=== PATIENT | female | born 1990 | race Caucasian/White ===

== ENCOUNTER 2017-07-05 00:11 | Inpatient (IN) | payer BC ==
[2017-07-05] MEDS ORDERED: Sodium Chloride 0.9% 10 ML Syringe FLUSH PRN (10:06)
[2017-07-05] MEDS ORDERED: Nalbuphine 20 MG/1 ML Amp IVPUSH PRN (10:06)
[2017-07-05] MEDS ORDERED: Oxytocin/Lactated Ringers 10 UNIT/1,000 ML BAG IV SCH ×2 (10:15)
--- NOTE | 2017-07-05 10:16 | PCM.LDHP ---
L&D History of Present Illness - General Date of Service: 07/05/17 Admit Problem/Dx: Patient Status Order with Admit Dx/Problem 07/05/17 10:07 Patient Status [ADT] Routine Admission Diagnosis/Problem Admission Diagnosis/Problem 07/05/17 10:11 Induction of labor Term Source of Information: Patient History Limitations: Reports: No Limitations - History of Present Illness Introduction:: 27 jossy LockeP0 at 41 weeks gestation presents for induction of labor. No LOF, No VB. Good FM Routine and uncomplicated care. Pt has rheumatoid arthritis with no flares during . She is planning to breastfeed. GBS neg AB Neg STD neg - Related Data Allergies/Adverse Reactions: Allergies Allergy/AdvReac Type Severity Reaction Status Date / Time cefaclor [From [facility]] Allergy Hives Verified 07/05/17 09:44 Past Medical History Musculoskeletal History: Reports: RA Social & Family History - Family History Cardiac: Reports: Heart Failure, Hypertension Endocrine/Metabolic: Reports: Diabetes, type II - Tobacco Use Smoking Status *Q: Never Smoker - Alcohol Use Alcohol Use History: No - Living Situation & Occupation Living situation: Reports: H&P Review of Systems - Review of Systems: Review Of Systems: See Below General: Reports: No Symptoms HEENT: Reports: No Symptoms Pulmonary: Reports: No Symptoms Cardiovascular: Reports: No Symptoms Gastrointestinal: Reports: No Symptoms Genitourinary: Reports: No Symptoms Musculoskeletal: Reports: No Symptoms Skin: Reports: No Symptoms Psychiatric: Reports: No Symptoms Neurological: Reports: No Symptoms Hematologic/Lymphatic: Reports: No Symptoms Immunologic: Reports: No Symptoms L&D Exam - Exam Exam: See Below - Vital Signs Vital Signs: Last Vital Signs Temp 37.0 C 07/05/17 09:43 Pulse 74 07/05/17 09:43 Resp BP 137/90 07/05/17 09:43 Pulse Ox 100 07/05/17 09:43 Weight: 82.1 kg - OB Specific Movement: Active Heart Tones: Present Heart Tones per Min: 130 Heart Rate (FHR) Variability: Moderate (6-25 bmp) Presentation: Vertex Estimated Weight: 3500 - Reynolds Score Reynolds Score Cervix Position: Midposition Reynolds Score Consistency: Soft Reynolds Score Effacement: >80% Reynolds Score Dilation: 3-4 cm Reynolds Score 's Station: -2 Reynolds Score Total: 9 - Exam General: Alert, Oriented Genitourinary: Normal external exam Extremities: Normal Inspection, No Pedal Edema Skin: Warm, Dry Psychiatric: Alert, Normal Affect, Normal Mood - Problem List (1) Term SNOMED Code(s): 45200286 ICD Code: Z34.80 - ENCOUNTER FOR SUPRVSN OF NORMAL , UNSP TRIMESTER Status: Acute Current Visit: Yes Problem List Initiated/Reviewed/Updated: Yes Orders Last 24hrs: Active Orders 24 hr Category Date Time Status Patient Status [ADT] Routine ADT 07/05/17 10:07 Ordered Activity as Tolerated [RC] PFP Care 07/05/17 10:06 Ordered Communication Order [RC] ASDIRECTED Care 07/05/17 10:06 Ordered Communication Order [RC] ASDIRECTED Care 07/05/17 10:06 Ordered Communication Order [RC] ASDIRECTED Care 07/05/17 10:06 Ordered Communication Order [RC] ASDIRECTED Care 07/05/17 10:06 Ordered Heart Tones [RC] ASDIRECTED Care 07/05/17 10:07 Ordered Monitoring [RC] INTERMITTENT Care 07/05/17 10:06 Ordered Notify Provider [RC] ASDIRECTED Care 07/05/17 10:06 Ordered Notify Provider [RC] PFP Care 07/05/17 10:06 Ordered Notify Provider [RC] PRN Care 07/05/17 10:06 Ordered Peripheral IV Care [RC] . DIRECTED Care 07/05/17 10:07 Ordered Vaginal Exam [RC] ASDIRECTED Care 07/05/17 10:06 Ordered Vital Signs [RC] ASDIRECTED Care 07/05/17 10:06 Ordered Vital Signs [RC] PER UNIT ROUTINE Care 07/05/17 10:06 Ordered Nothing Per Oral Diet [DIET] Diet 07/05/17 Breakfast Ordered CBC W/O DIFF,HEMOGRAM [HEME] Stat Lab 07/05/17 10:06 Ordered FLU Vacc [id number](6MOS UP)/PF [Flulaval Quad [id number] Med 07/05/17 18:00 Once ] 60 mcg IM .ONCE ONE Lactated Ringers [Ringers, Lactated] 1,000 ml Med 07/05/17 10:15 Ordered IV ASDIRECTED Lactated Ringers [Ringers, Lactated] 1,000 ml Med 07/05/17 10:15 Ordered IV ASDIRECTED Lidocaine 1% [Xylocaine 1%] Med 07/05/17 10:06 Once 50 ml INJECT ONETIME ONE Nalbuphine [Nubain] Med 07/05/17 10:06 Ordered 10 mg IVPUSH Q2H PRN Oxytocin/Lactated Ringers [Pitocin in LR 10 Units/1,000 Med 07/05/17 10:15 Ordered ML] 10 unit in 1,000 ml IV .CONTINUOUS Oxytocin/Lactated Ringers [Pitocin in LR 10 Units/1,000 Med 07/05/17 10:15 Ordered ML] 10 unit in 1,000 ml IV TITRATE Sodium Chloride 0.9% [Saline Flush] Med 07/05/17 10:06 Ordered 10 ml FLUSH ASDIRECTED PRN Electronic Heart Tones Ext w TOCO [WOMSER] Oth 07/05/17 10:06 Ordered Routine Electronic Heart Tones Internal [WOMSER] Per Unit Oth 07/05/17 10:06 Ordered Routine Peripheral IV Insertion Adult [OM.PC] Routine Oth 07/05/17 10:06 Ordered Peripheral IV Insertion Adult [OM.PC] Routine Oth 07/05/17 10:06 Ordered Resuscitation Status Routine Resus Stat 07/05/17 10:06 Ordered Medication Orders Influenza Virus Vaccine (Flulaval Quad [id number]) 60 mcg IM .ONCE ONE Stop: 07/05/17 18:01 Assessment/Plan Comment:: 27 yo at 41 weeks gestation presents for induction of labor. Pt is 3 cm dilated on initial exam. Pitocin started. anticipate vaginal delivery.
[2017-07-05] MEDS: Lactated Ringers 1,000 ML IV SCH ×3 (10:28→20:17)
[2017-07-05] MEDS ORDERED: Bupivacaine 0.25% 10 ML SDV ONE (12:00)
[2017-07-05] MEDS ORDERED: ePHEDrine 50 MG/ML SDV IVPUSH PRN (12:14)
[2017-07-05] MEDS ORDERED: diphenhydrAMINE 50 MG/ML SDV IVPUSH PRN (12:14)
[2017-07-05] MEDS ORDERED: fentaNYL 100 MCG/2 ML SDV EPIDUR PRN (12:14)
[2017-07-05] MEDS ORDERED: Bupivacaine/fentaNYL/NS 100 ML Bag EPIDUR SCH (12:15)
--- NOTE | 2017-07-05 12:30 | PCM.PREANE ---
Preanesthetic Assessment - Anesthesia/Transfusion/Family Hx Anesthesia History: No Prior Anesthesia Family History of Anesthesia Reaction: No Transfusion History: No Prior Transfusion(s) - Review of Systems General: No Symptoms Pulmonary: No Symptoms Cardiovascular: No Symptoms Gastrointestinal: No Symptoms Neurological: No Symptoms Other: Reports: None - Physical Assessment O2 Sat by Pulse Oximetry: 100 Vital Signs: Last Vital Signs Temp 98.6 F 07/05/17 09:43 Pulse 74 07/05/17 09:43 Resp BP 137/90 07/05/17 09:43 Pulse Ox 100 07/05/17 09:43 Height: 5 ft 10 in Weight: 82.1 kg ASA Class: 2 Mental Status: Alert & Oriented x3 Airway Class: Mallampati = 1 Dentition: Reports: Normal Dentition Thyro-Mental Finger Breadths: 3 Mouth Opening Finger Breadths: 3 ROM/Head Extension: Full Lungs: Clear to Auscultation, Normal Respiratory Effort Cardiovascular: Regular Rate, Regular Rhythm - Lab Values: Laboratory Last Values WBC 14.83 K/mm3 (3.98-10.04) H 07/05/17 10:35 RBC 4.61 M/mm3 (3.98-5.22) 07/05/17 10:35 Hgb 14.1 gm/L (11.2-15.7) 07/05/17 10:35 Hct 42.3 % (34.1-44.9) 07/05/17 10:35 MCV 91.8 fl (79.4-94.8) 07/05/17 10:35 MCH 30.6 pg (25.6-32.2) 07/05/17 10:35 MCHC 33.3 g/dl (32.2-35.5) 07/05/17 10:35 RDW Std Deviation 46.1 fL (36.4-46.3) 07/05/17 10:35 Plt Count 251 K/mm3 (182-369) 07/05/17 10:35 MPV 11.6 fl (9.4-12.3) 07/05/17 10:35 - Allergies Allergies/Adverse Reactions: Allergies Allergy/AdvReac Type Severity Reaction Status Date / Time cefaclor [From [facility]] Allergy Hives Verified 07/05/17 09:44 - Blood Blood Available: No - Acknowledgements Anesthesia Type Planned: Epidural Pt an Appropriate Candidate for the Planned Anesthesia: Yes Alternatives and Risks of Anesthesia Discussed w Pt/Guardian: Yes Pt/Guardian Understands and Agrees with Anesthesia Plan: Yes PreAnesthesia Questionnaire Cardiovascular History: Reports: None Respiratory History: Reports: None Gastrointestinal History: Reports: GERD (with preg- tums) [employer] History: Reports: : 1 (41 weeks) Para: 0 Musculoskeletal History: Reports: RA Oncologic (Cancer) History: Reports: None - History Comment History Comment: vits and tums and iron for home meds - SUBSTANCE USE Smoking Status *Q: Never Smoker Tobacco Use Within Last Twelve Months: No Second Hand Smoke Exposure: No Days Per Week of Alcohol Use: 0 Recreational Drug Use History: No - CURRENT (IN HOUSE) MEDS Current Meds: Current Medications Diphenhydramine HCl (Benadryl) 25 mg IVPUSH Q6H PRN PRN Reason: pruritis Ephedrine Sulfate (Ephedrine Sulfate) 5 mg IVPUSH ASDIRECTED PRN PRN Reason: Hypotension Fentanyl (Sublimaze) 100 mcg EPIDUR Q3H PRN PRN Reason: Pain Fentanyl/Bupivacaine HCl (Fentanyl/Bupivacaine/Ns 2 Mcg-0.125% 100 Ml) 100 ml EPIDUR ASDIRECTED GINA Lactated Ringer's (Ringers, Lactated) 1,000 mls @ 40 mls/hr IV ASDIRECTED GINA Last Admin: 07/05/17 10:28 Dose: 40 mls/hr Lactated Ringer's (Ringers, Lactated) 1,000 mls @ 100 mls/hr IV ASDIRECTED GINA Oxytocin/Lactated Ringer's (Pitocin In Lr 10 Units/1,000 Ml) 10 unit in 1,000 mls @ 12 mls/hr IV TITRATE GINA; 2 MUNITS/MIN PRN Reason: Protocol Last Titration: 07/05/17 11:38 Dose: 8 munits/min, 48 mls/hr Oxytocin/Lactated Ringer's (Pitocin In Lr 10 Units/1,000 Ml) 10 unit in 1,000 mls @ 500 mls/hr IV .CONTINUOUS GINA Influenza Virus Vaccine (Flulaval Quad [id number]) 60 mcg IM .ONCE ONE Stop: 07/05/17 18:01 Lidocaine HCl (Xylocaine 1%) 50 ml INJECT ONETIME ONE Stop: 07/05/17 16:01 Nalbuphine HCl (Nubain) 10 mg IVPUSH Q2H PRN PRN Reason: Pain (moderate 4-6) Sodium Chloride (Saline Flush) 10 ml FLUSH ASDIRECTED PRN PRN Reason: Keep Vein Open Discontinued Medications Influenza Virus Vaccine (Pharmacy To Dose - Influenza Vaccine) 1 each IM ONETIME ONE Stop: 07/05/17 09:51
[2017-07-05] MEDS ORDERED: Lidocaine 1% 50 ML MDV INJECT ONE (16:00)
[2017-07-05] MEDS ORDERED: FLU Vacc QS 2017-18 (6mos UP)/PF 60 MCG/0.5 ML Syringe IM ONE (18:00)
[2017-07-06] MEDS: Methylergonovine 0.2 MG/1 ML Amp ONE ×2 (00:32→10:30)
[2017-07-06] MEDS ORDERED: Docusate Sodium 100 MG Cap PO PRN (00:46)
[2017-07-06] MEDS ORDERED: Carboprost Tromethamine 250 MCG/1 ML Amp IM PRN (00:46)
[2017-07-06] MEDS ORDERED: Lanolin 100% Cream 7 GM Tube TOP PRN (00:46)
[2017-07-06] MEDS ORDERED: Witch Hazel Medicated Pads 100/Jar TOP PRN (00:46)
[2017-07-06] MEDS ORDERED: Acetaminophen 325 MG Tab PO PRN (00:46)
[2017-07-06] MEDS ORDERED: Benzocaine/Menthol 20%-0.5% Spray 56 GM Canister TOP PRN (00:46)
--- NOTE | 2017-07-06 00:53 | PCM.DEL ---
L & D Note - General Info Date of Service: 07/06/17 Mother's Due Date: 06/28/17 - Delivery Note Labor: Augmented by Oxytocin Delivery Outcome: Livebirth Infant Delivery Method: Spontaneous Vaginal Delivery-Single Presentation: Right Occiput Anterior (ADRIAN) Nuchal Cord: Present Prep: Povidone-Iodine (Betadine Anesthesia Type: Epidural Amniotic Fluid Description: Clear Laceration: 2nd Degree Suture type: Vicryl Suture size: 3-0 Placenta: Intact, Spontaneous Cord: 3 Vessels Estimated Blood Loss: 500 Resuscitation Needed: No [place]: Suctioned Post Delivery Events: Hemorrhage Delivery Comments (Free Text/Narrative):: mild hemorrhage controlled with uterine massage, clot evacuation and methergine IM x 1 dose. - Patient Data Vitals - Most Recent: Last Vital Signs Temp 37.0 C 07/05/17 09:43 Pulse 74 07/05/17 09:43 Resp BP 137/90 07/05/17 09:43 Pulse Ox 100 07/05/17 12:30 Weight - Most Recent: 82.1 kg Lab Results Last 24 Hours: Laboratory Results - last 24 hr 07/05/17 Range/Units 10:35 WBC 14.83 H (3.98-10.04) K/mm3 RBC 4.61 (3.98-5.22) M/mm3 Hgb 14.1 (11.2-15.7) gm/L Hct 42.3 (34.1-44.9) % MCV 91.8 (79.4-94.8) fl MCH 30.6 (25.6-32.2) pg MCHC 33.3 (32.2-35.5) g/dl RDW Std Deviation 46.1 (36.4-46.3) fL Plt Count 251 (182-369) K/mm3 MPV 11.6 (9.4-12.3) fl Med Orders - Current: Current Medications Acetaminophen (Tylenol) 650 mg PO Q4H PRN PRN Reason: mild pain or fever Benzocaine/Menthol (Dermoplast Pain Relief [place]) 0 gm TOP ASDIRECTED PRN PRN Reason: Perineal Comfort Measure Carboprost Tromethamine (Hemabate Ds) 250 mcg IM ASDIRECTED PRN PRN Reason: Excessive vaginal bleeding Diphenhydramine HCl (Benadryl) 25 mg IVPUSH Q6H PRN PRN Reason: pruritis Docusate Sodium (Colace) 100 mg PO BID PRN PRN Reason: Constipation Emollient Ointment (Lansinoh Hpa) 0 gm TOP ASDIRECTED PRN PRN Reason: Sore Nipples Ephedrine Sulfate (Ephedrine Sulfate) 5 mg IVPUSH ASDIRECTED PRN PRN Reason: Hypotension Fentanyl (Sublimaze) 100 mcg EPIDUR Q3H PRN PRN Reason: Pain Last Admin: 07/05/17 20:28 Dose: 100 mcg Fentanyl/Bupivacaine HCl (Fentanyl/Bupivacaine/Ns 2 Mcg-0.125% 100 Ml) 100 ml EPIDUR ASDIRECTED GINA Last Admin: 07/05/17 20:28 Dose: 100 ml Lactated Ringer's (Ringers, Lactated) 1,000 mls @ 40 mls/hr IV ASDIRECTED GINA Last Admin: 07/05/17 18:22 Dose: 40 mls/hr Lactated Ringer's (Ringers, Lactated) 1,000 mls @ 100 mls/hr IV ASDIRECTED GINA Last Admin: 07/05/17 20:17 Dose: 500 mls/hr Oxytocin/Lactated Ringer's (Pitocin In Lr 10 Units/1,000 Ml) 10 unit in 1,000 mls @ 12 mls/hr IV TITRATE GINA; 2 MUNITS/MIN PRN Reason: Protocol Last Titration: 07/05/17 18:19 Dose: 11 munits/min, 66 mls/hr Oxytocin/Lactated Ringer's (Pitocin In Lr 10 Units/1,000 Ml) 10 unit in 1,000 mls @ 500 mls/hr IV .CONTINUOUS GINA Ibuprofen (Motrin) 600 mg PO Q4H PRN PRN Reason: Mild pain or fever Nalbuphine HCl (Nubain) 10 mg IVPUSH Q2H PRN PRN Reason: Pain (moderate 4-6) Sodium Chloride (Saline Flush) 10 ml FLUSH ASDIRECTED PRN PRN Reason: Keep Vein Open Witch Norma (Tucks) 1 pad TOP ASDIRECTED PRN PRN Reason: Hemorrhoid pain Discontinued Medications Influenza Virus Vaccine (Pharmacy To Dose - Influenza Vaccine) 1 each IM ONETIME ONE Stop: 07/05/17 09:51 Influenza Virus Vaccine (Flulaval Quad [id number]) 60 mcg IM .ONCE ONE Stop: 07/05/17 18:01 Lidocaine HCl (Xylocaine 1%) 50 ml INJECT ONETIME ONE Stop: 07/05/17 16:01 Methylergonovine Maleate (Methergine) Confirm Administered Dose 0.2 mg .ROUTE .STK-MED ONE Stop: 07/06/17 00:30 - Problem List & Annotations (1) Term SNOMED Code(s): 00995088 Code(s): Z34.80 - ENCOUNTER FOR SUPRVSN OF NORMAL , UNSP TRIMESTER Status: Acute Current Visit: Yes - Problem List Review Problem List Initiated/Reviewed/Updated: Yes - My Orders Last 24 Hours: My Active Orders 07/05/17 10:06 Activity as Tolerated [RC] PFP Communication Order [RC] ASDIRECTED Communication Order [RC] ASDIRECTED Communication Order [RC] ASDIRECTED Communication Order [RC] ASDIRECTED Monitoring [RC] INTERMITTENT Notify Provider [RC] ASDIRECTED Notify Provider [RC] PFP Notify Provider [RC] PRN Vaginal Exam [RC] ASDIRECTED Vital Signs [RC] ASDIRECTED Nalbuphine [Nubain] 10 mg IVPUSH Q2H PRN Sodium Chloride 0.9% [Saline Flush] 10 ml FLUSH ASDIRECTED PRN Electronic Heart Tones Ext w TOCO [WOMSER] Routine Electronic Heart Tones Internal [WOMSER] Per Unit Routine Peripheral IV Insertion Adult [OM.PC] Routine Peripheral IV Insertion Adult [OM.PC] Routine Resuscitation Status Routine 07/05/17 10:07 Heart Tones [RC] ASDIRECTED Peripheral IV Care [RC] . DIRECTED 07/05/17 10:15 Lactated Ringers [Ringers, Lactated] 1,000 ml IV ASDIRECTED Lactated Ringers [Ringers, Lactated] 1,000 ml IV ASDIRECTED Oxytocin/Lactated Ringers [Pitocin in LR 10 Units/1,000 ML] 10 unit in 1,000 ml IV .CONTINUOUS Oxytocin/Lactated Ringers [Pitocin in LR 10 Units/1,000 ML] 10 unit in 1,000 ml IV TITRATE 07/05/17 Breakfast Nothing Per Oral Diet [DIET] 07/06/17 00:45 Patient Status Manage Transfer [TRANSFER] Routine 07/06/17 00:46 Acetaminophen [Tylenol] 650 mg PO Q4H PRN Benzocaine/Menthol [Dermoplast Pain Relief [place]] See Dose Instructions TOP ASDIRECTED PRN Carboprost Tromethamine [Hemabate DS] 250 mcg IM ASDIRECTED PRN Docusate Sodium [Colace] 100 mg PO BID PRN Ibuprofen [Motrin] 600 mg PO Q4H PRN Lanolin [Lansinoh HPA] See Dose Instructions TOP ASDIRECTED PRN Witevelin Norma [Tucks] 1 pad TOP ASDIRECTED PRN 07/06/17 00:47 Patient Status [ADT] Routine Activity as Tolerated [RC] PER UNIT ROUTINE Vital Signs [RC] ASDIRECTED Assess Lochia [WOMSER] Per Unit Routine Assess Uterine Involution [WOMSER] Per Unit Routine Breast Pump [WOMSER] Per Unit Routine Medication Administration Instruction [OM.PC] Routine Perineal Care [OM.PC] Per Unit Routine Sitz Bath [OM.PC] Per Unit Routine 07/06/17 01:00 Heat Therapy [OM.PC] PRN 07/06/17 Breakfast Regular Diet [DIET] 07/07/17 01:00 Heat Therapy [OM.PC] PRN 07/07/17 06:00 CBC W/O DIFF,HEMOGRAM [HEME] Routine - Plan Plan:: 27 yo at 41 weeks gestation presents for induction of labor. Pt is 3 cm dilated on initial exam. Pitocin started. anticipate vaginal delivery.
[2017-07-06] MEDS: Lactated Ringers 1,000 ML IV SCH (00:59)
--- NOTE | 2017-07-06 08:24 | PCM.PNPP ---
- General Info Date of Service: 07/06/17 Subjective Update: Pain controlled. no concerns. lochia normal. Functional Status: Reports: Pain Controlled, Tolerating Diet, Ambulating - Review of Systems General: Reports: No Symptoms HEENT: Reports: No Symptoms Pulmonary: Reports: No Symptoms Cardiovascular: Reports: No Symptoms Musculoskeletal: Reports: No Symptoms, Back Pain - General Info Date of Service: 07/06/17 - Patient Data Vital Signs - Most Recent: Last Vital Signs Temp 36.9 C 07/06/17 04:34 Pulse 78 07/06/17 04:34 Resp 20 07/06/17 04:34 BP 130/87 07/06/17 04:34 Pulse Ox 97 07/06/17 04:34 Weight - Most Recent: 82.1 kg I&O - Last 24 Hours: Intake & Output 07/05/17 07/06/17 07/06/17 22:59 06:59 14:59 Intake Total 3000 Balance 3000 Lab Results - Last 24 Hours: Laboratory Results - last 24 hr 07/05/17 Range/Units 10:35 WBC 14.83 H (3.98-10.04) K/mm3 RBC 4.61 (3.98-5.22) M/mm3 Hgb 14.1 (11.2-15.7) gm/L Hct 42.3 (34.1-44.9) % MCV 91.8 (79.4-94.8) fl MCH 30.6 (25.6-32.2) pg MCHC 33.3 (32.2-35.5) g/dl RDW Std Deviation 46.1 (36.4-46.3) fL Plt Count 251 (182-369) K/mm3 MPV 11.6 (9.4-12.3) fl Med Orders - Current: Current Medications Acetaminophen (Tylenol) 650 mg PO Q4H PRN PRN Reason: mild pain or fever Benzocaine/Menthol (Dermoplast Pain Relief [place]) 0 gm TOP ASDIRECTED PRN PRN Reason: Perineal Comfort Measure Carboprost Tromethamine (Hemabate Ds) 250 mcg IM ASDIRECTED PRN PRN Reason: Excessive vaginal bleeding Diphenhydramine HCl (Benadryl) 25 mg IVPUSH Q6H PRN PRN Reason: pruritis Docusate Sodium (Colace) 100 mg PO BID PRN PRN Reason: Constipation Emollient Ointment (Lansinoh Hpa) 0 gm TOP ASDIRECTED PRN PRN Reason: Sore Nipples Ephedrine Sulfate (Ephedrine Sulfate) 5 mg IVPUSH ASDIRECTED PRN PRN Reason: Hypotension Fentanyl (Sublimaze) 100 mcg EPIDUR Q3H PRN PRN Reason: Pain Last Admin: 07/05/17 20:28 Dose: 100 mcg Fentanyl/Bupivacaine HCl (Fentanyl/Bupivacaine/Ns 2 Mcg-0.125% 100 Ml) 100 ml EPIDUR ASDIRECTED GINA Last Admin: 07/05/17 20:28 Dose: 100 ml Lactated Ringer's (Ringers, Lactated) 1,000 mls @ 40 mls/hr IV ASDIRECTED GINA Last Admin: 07/05/17 18:22 Dose: 40 mls/hr Lactated Ringer's (Ringers, Lactated) 1,000 mls @ 100 mls/hr IV ASDIRECTED [facility] Last Admin: 07/06/17 00:59 Dose: 500 mls/hr Oxytocin/Lactated Ringer's (Pitocin In Lr 10 Units/1,000 Ml) 10 unit in 1,000 mls @ 12 mls/hr IV TITRATE GINA; 2 MUNITS/MIN PRN Reason: Protocol Last Titration: 07/05/17 18:19 Dose: 11 munits/min, 66 mls/hr Oxytocin/Lactated Ringer's (Pitocin In Lr 10 Units/1,000 Ml) 10 unit in 1,000 mls @ 500 mls/hr IV .CONTINUOUS GINA Ibuprofen (Motrin) 600 mg PO Q4H PRN PRN Reason: Mild pain or fever Nalbuphine HCl (Nubain) 10 mg IVPUSH Q2H PRN PRN Reason: Pain (moderate 4-6) Sodium Chloride (Saline Flush) 10 ml FLUSH ASDIRECTED PRN PRN Reason: Keep Vein Open Witch Norma (Tucks) 1 pad TOP ASDIRECTED PRN PRN Reason: Hemorrhoid pain Discontinued Medications Influenza Virus Vaccine (Pharmacy To Dose - Influenza Vaccine) 1 each IM ONETIME ONE Stop: 07/05/17 09:51 Influenza Virus Vaccine (Flulaval Quad [id number]) 60 mcg IM .ONCE ONE Stop: 07/05/17 18:01 Lidocaine HCl (Xylocaine 1%) 50 ml INJECT ONETIME ONE Stop: 07/05/17 16:01 Methylergonovine Maleate (Methergine) Confirm Administered Dose 0.2 mg .ROUTE .STK-MED ONE Stop: 07/06/17 00:30 Last Admin: 07/06/17 00:32 Dose: 0.2 mg - Interaction Infant Disposition, : in Room with Family Interaction: Holding Infant Infant Feeding: Attempted ; Nursed Fair/Poor Support Person: - Recovery Exam Fundal Tone: Firm Fundal Level: 1 Fingerbreadths Above Umbilicus Fundal Placement: Midline - Exam General: Alert, Oriented Extremities: Normal Inspection, No Pedal Edema - Problem List & Annotations (1) Term SNOMED Code(s): 09477214 Code(s): Z34.80 - ENCOUNTER FOR SUPRVSN OF NORMAL , UNSP TRIMESTER Status: Acute Current Visit: Yes - Problem List Review Problem List Initiated/Reviewed/Updated: Yes - My Orders Last 24 Hours: My Active Orders 07/05/17 10:06 Monitoring [RC] INTERMITTENT Vaginal Exam [RC] ASDIRECTED Vital Signs [RC] ASDIRECTED Nalbuphine [Nubain] 10 mg IVPUSH Q2H PRN Sodium Chloride 0.9% [Saline Flush] 10 ml FLUSH ASDIRECTED PRN Resuscitation Status Routine 07/05/17 10:07 Heart Tones [RC] ASDIRECTED Peripheral IV Care [RC] . DIRECTED 07/05/17 10:15 Lactated Ringers [Ringers, Lactated] 1,000 ml IV ASDIRECTED Lactated Ringers [Ringers, Lactated] 1,000 ml IV ASDIRECTED Oxytocin/Lactated Ringers [Pitocin in LR 10 Units/1,000 ML] 10 unit in 1,000 ml IV .CONTINUOUS Oxytocin/Lactated Ringers [Pitocin in LR 10 Units/1,000 ML] 10 unit in 1,000 ml IV TITRATE 07/06/17 00:46 Acetaminophen [Tylenol] 650 mg PO Q4H PRN Benzocaine/Menthol [Dermoplast Pain Relief [place]] See Dose Instructions TOP ASDIRECTED PRN Carboprost Tromethamine [Hemabate DS] 250 mcg IM ASDIRECTED PRN Docusate Sodium [Colace] 100 mg PO BID PRN Ibuprofen [Motrin] 600 mg PO Q4H PRN Lanolin [Lansinoh HPA] See Dose Instructions TOP ASDIRECTED PRN Witevelin Norma [Tucks] 1 pad TOP ASDIRECTED PRN 07/06/17 00:47 Patient Status [ADT] Routine Activity as Tolerated [RC] PER UNIT ROUTINE Vital Signs [RC] ASDIRECTED Assess Lochia [WOMSER] Per Unit Routine Assess Uterine Involution [WOMSER] Per Unit Routine Breast Pump [WOMSER] Per Unit Routine Medication Administration Instruction [OM.PC] Routine Perineal Care [OM.PC] Per Unit Routine Sitz Bath [OM.PC] Per Unit Routine 07/06/17 01:00 Heat Therapy [OM.PC] PRN 07/06/17 08:20 CBC W/O DIFF,HEMOGRAM [HEME] Routine 07/06/17 Breakfast Regular Diet [DIET] 07/07/17 01:00 Heat Therapy [OM.PC] PRN 07/07/17 06:00 CBC W/O DIFF,HEMOGRAM [HEME] Routine (Cancelled) - Plan Plan:: 27 yo at 41 weeks gestation presents for induction of labor. Pt is 3 cm dilated on initial exam. Pitocin started. anticipate vaginal delivery. 07/06/17 27 yo at PPD #1 s/p NVD hemorrhage Plan: CBC pending. fair No concerns.
[2017-07-06] MEDS: Ibuprofen 600 MG Tab PO PRN ×3 (09:00→21:00)
--- NOTE | 2017-07-06 13:53 | PCM48HPAN ---
Post Anesthesia Note - EVALUATION WITHIN 48HRS OF ANESTHETIC Vital Signs in Normal Range: Yes Patient Participated in Evaluation: Yes Respiratory Function Stable: Yes Airway Patent: Yes Cardiovascular Function Stable: Yes Hydration Status Stable: Yes Pain Control Satisfactory: Yes Nausea and Vomiting Control Satisfactory: Yes Mental Status Recovered: Yes
--- NOTE | 2017-07-07 07:36 | PCM.DCSUM1 ---
Discharge Summary - Hospital Course Free Text/Narrative:: 27 yo on PPD #1 s/p NVD with 2nd degreee laceration and hemorrhage. toleratin diet and activity. pain controlled. difficulty, not latching. Brief History: routine vaginal delivery. 2nd degree laceration. hemorrhage requiring methergine x1 dose. - Discharge Data Discharge Date: 07/07/17 Discharge Disposition: Home, Self-Care 01 Condition: Good - Discharge Diagnosis/Problem(s) (1) Term SNOMED Code(s): 10431931 ICD Code: Z34.80 - ENCOUNTER FOR SUPRVSN OF NORMAL , UNSP TRIMESTER Status: Resolved Current Visit: Yes (2) Vaginal delivery SNOMED Code(s): 825632627 ICD Code: O80 - ENCOUNTER FOR FULL-TERM UNCOMPLICATED DELIVERY Status: Resolved Current Visit: Yes (3) hemorrhage SNOMED Code(s): 68346594 ICD Code: O72.1 - OTHER IMMEDIATE HEMORRHAGE Status: Resolved Current Visit: Yes Qualifiers: hemorrhage type: third-stage Qualified Code(s): O72.0 - Third- stage hemorrhage - Patient Instructions Diet: Usual Diet as Tolerated Activity: As Tolerated Driving: May Drive Today Showering/Bathing: May Shower Wound/Incision Care: Keep Operative Site/Wound Site Clean and Dry Notify Provider of: Fever, Increased Pain, Swelling and Redness, Drainage, Nausea and/or Vomiting - Discharge Plan Home Medications: Home Meds Acetaminophen [Tylenol] 650 mg PO Q4H PRN tablet 07/07/17 [Rx] Docusate Sodium [Colace] 100 mg PO BID PRN cap 07/07/17 [Rx] Ibuprofen [IJD: Ibuprofen] 600 mg PO Q4H PRN tablet 07/07/17 [Rx] Lanolin [Lansinoh HPA] 1 applic TOP ASDIRECTED PRN tube 07/07/17 [Rx] Witch Norma [Tucks] 1 pad TOP ASDIRECTED PRN pad 07/07/17 [Rx] Patient Handouts: , Home Care Instructions for Mom, Challenges and Solutions Referrals: Dori Wei MD [Physician] - (6-8 weeks ) - Discharge Summary/Plan Comment DC Time >30 min.: No - General Info Date of Service: 07/07/17 Functional Status: Reports: Pain Controlled, Tolerating Diet, Ambulating - Patient Data Vitals - Most Recent: Last Vital Signs Temp 36.4 C 07/07/17 04:07 Pulse 89 07/07/17 04:07 Resp 13 07/07/17 04:07 BP 134/81 07/07/17 04:07 Pulse Ox 95 07/07/17 04:07 Weight - Most Recent: 82.1 kg I&O - Last 24 hours: Intake & Output 07/06/17 07/07/17 07/07/17 22:59 06:59 14:59 Intake Total 0 Balance 0 Lab Results - Last 24 hrs: Laboratory Results - last 24 hr 07/06/17 07/06/17 Range/Units 11:50 11:50 WBC 18.50 H (3.98-10.04) K/mm3 RBC 3.97 L (3.98-5.22) M/mm3 Hgb 12.1 (11.2-15.7) gm/L Hct 36.1 (34.1-44.9) % MCV 90.9 (79.4-94.8) fl MCH 30.5 (25.6-32.2) pg MCHC 33.5 (32.2-35.5) g/dl RDW Std Deviation 44.6 (36.4-46.3) fL Plt Count 224 (182-369) K/mm3 MPV 11.4 (9.4-12.3) fl Blood Type AB NEGATIVE Gel Antibody Screen Negative Screen 0 ros/5 flds - neg RhIG Candidate? Yes Rhogam Indicated Yes, baby rh pos H Med Orders - Current: Current Medications Acetaminophen (Tylenol) 650 mg PO Q4H PRN PRN Reason: mild pain or fever Benzocaine/Menthol (Dermoplast Pain Relief Firth) 0 gm TOP ASDIRECTED PRN PRN Reason: Perineal Comfort Measure Carboprost Tromethamine (Hemabate Ds) 250 mcg IM ASDIRECTED PRN PRN Reason: Excessive vaginal bleeding Diphenhydramine HCl (Benadryl) 25 mg IVPUSH Q6H PRN PRN Reason: pruritis Docusate Sodium (Colace) 100 mg PO BID PRN PRN Reason: Constipation Last Admin: 07/06/17 21:01 Dose: 100 mg Emollient Ointment (Lansinoh Hpa) 0 gm TOP ASDIRECTED PRN PRN Reason: Sore Nipples Ephedrine Sulfate (Ephedrine Sulfate) 5 mg IVPUSH ASDIRECTED PRN PRN Reason: Hypotension Fentanyl (Sublimaze) 100 mcg EPIDUR Q3H PRN PRN Reason: Pain Last Admin: 07/05/17 20:28 Dose: 100 mcg Fentanyl/Bupivacaine HCl (Fentanyl/Bupivacaine/Ns 2 Mcg-0.125% 100 Ml) 100 ml EPIDUR ASDIRECTED GINA Last Admin: 07/05/17 20:28 Dose: 100 ml Lactated Ringer's (Ringers, Lactated) 1,000 mls @ 40 mls/hr IV ASDIRECTED GINA Last Admin: 07/05/17 18:22 Dose: 40 mls/hr Lactated Ringer's (Ringers, Lactated) 1,000 mls @ 100 mls/hr IV ASDIRECTED GINA Last Admin: 07/06/17 00:59 Dose: 500 mls/hr Oxytocin/Lactated Ringer's (Pitocin In Lr 10 Units/1,000 Ml) 10 unit in 1,000 mls @ 12 mls/hr IV TITRATE GINA; 2 MUNITS/MIN PRN Reason: Protocol Last Titration: 07/05/17 18:19 Dose: 11 munits/min, 66 mls/hr Oxytocin/Lactated Ringer's (Pitocin In Lr 10 Units/1,000 Ml) 10 unit in 1,000 mls @ 500 mls/hr IV .CONTINUOUS GINA Ibuprofen (Motrin) 600 mg PO Q4H PRN PRN Reason: Mild pain or fever Last Admin: 07/06/17 21:00 Dose: 600 mg Nalbuphine HCl (Nubain) 10 mg IVPUSH Q2H PRN PRN Reason: Pain (moderate 4-6) Sodium Chloride (Saline Flush) 10 ml FLUSH ASDIRECTED PRN PRN Reason: Keep Vein Open Witch Norma (Tucks) 1 pad TOP ASDIRECTED PRN PRN Reason: Hemorrhoid pain Discontinued Medications Influenza Virus Vaccine (Pharmacy To Dose - Influenza Vaccine) 1 each IM ONETIME ONE Stop: 07/05/17 09:51 Last Admin: 07/06/17 10:31 Dose: Not Given Influenza Virus Vaccine (Flulaval Quad [id number]) 60 mcg IM .ONCE ONE Stop: 07/05/17 18:01 Lidocaine HCl (Xylocaine 1%) 50 ml INJECT ONETIME ONE Stop: 07/05/17 16:01 Last Admin: 07/06/17 10:29 Dose: Not Given Methylergonovine Maleate (Methergine) Confirm Administered Dose 0.2 mg .ROUTE .STK-MED ONE Stop: 07/06/17 00:30 Last Admin: 07/06/17 10:30 Dose: Not Given *Q Meaningful Use (DIS) - VTE *Q VTE Criteria *Q: - Stroke *Q Stroke Criteria *Q: - AMI *Q AMI Criteria *Q: - General Info Date of Service: 07/07/17 - Patient Data Vital Signs - Most Recent: Last Vital Signs Temp 36.4 C 07/07/17 04:07 Pulse 89 07/07/17 04:07 Resp 13 07/07/17 04:07 BP 134/81 07/07/17 04:07 Pulse Ox 95 07/07/17 04:07 Weight - Most Recent: 82.1 kg I&O - Last 24 Hours: Intake & Output 07/06/17 07/07/17 07/07/17 22:59 06:59 14:59 Intake Total 0 Balance 0 Lab Results - Last 24 Hours: Laboratory Results - last 24 hr 07/06/17 07/06/17 Range/Units 11:50 11:50 WBC 18.50 H (3.98-10.04) K/mm3 RBC 3.97 L (3.98-5.22) M/mm3 Hgb 12.1 (11.2-15.7) gm/L Hct 36.1 (34.1-44.9) % MCV 90.9 (79.4-94.8) fl MCH 30.5 (25.6-32.2) pg MCHC 33.5 (32.2-35.5) g/dl RDW Std Deviation 44.6 (36.4-46.3) fL Plt Count 224 (182-369) K/mm3 MPV 11.4 (9.4-12.3) fl Blood Type AB NEGATIVE Gel Antibody Screen Negative Screen 0 ros/5 flds - neg RhIG Candidate? Yes Rhogam Indicated Yes, baby rh pos H Med Orders - Current: Current Medications Acetaminophen (Tylenol) 650 mg PO Q4H PRN PRN Reason: mild pain or fever Benzocaine/Menthol (Dermoplast Pain Relief [place]) 0 gm TOP ASDIRECTED PRN PRN Reason: Perineal Comfort Measure Carboprost Tromethamine (Hemabate Ds) 250 mcg IM ASDIRECTED PRN PRN Reason: Excessive vaginal bleeding Diphenhydramine HCl (Benadryl) 25 mg IVPUSH Q6H PRN PRN Reason: pruritis Docusate Sodium (Colace) 100 mg PO BID PRN PRN Reason: Constipation Last Admin: 07/06/17 21:01 Dose: 100 mg Emollient Ointment (Lansinoh Hpa) 0 gm TOP ASDIRECTED PRN PRN Reason: Sore Nipples Ephedrine Sulfate (Ephedrine Sulfate) 5 mg IVPUSH ASDIRECTED PRN PRN Reason: Hypotension Fentanyl (Sublimaze) 100 mcg EPIDUR Q3H PRN PRN Reason: Pain Last Admin: 07/05/17 20:28 Dose: 100 mcg Fentanyl/Bupivacaine HCl (Fentanyl/Bupivacaine/Ns 2 Mcg-0.125% 100 Ml) 100 ml EPIDUR ASDIRECTED GINA Last Admin: 07/05/17 20:28 Dose: 100 ml Lactated Ringer's (Ringers, Lactated) 1,000 mls @ 40 mls/hr IV ASDIRECTED GINA Last Admin: 07/05/17 18:22 Dose: 40 mls/hr Lactated Ringer's (Ringers, Lactated) 1,000 mls @ 100 mls/hr IV ASDIRECTED GINA Last Admin: 07/06/17 00:59 Dose: 500 mls/hr Oxytocin/Lactated Ringer's (Pitocin In Lr 10 Units/1,000 Ml) 10 unit in 1,000 mls @ 12 mls/hr IV TITRATE GINA; 2 MUNITS/MIN PRN Reason: Protocol Last Titration: 07/05/17 18:19 Dose: 11 munits/min, 66 mls/hr Oxytocin/Lactated Ringer's (Pitocin In Lr 10 Units/1,000 Ml) 10 unit in 1,000 mls @ 500 mls/hr IV .CONTINUOUS GINA Ibuprofen (Motrin) 600 mg PO Q4H PRN PRN Reason: Mild pain or fever Last Admin: 07/06/17 21:00 Dose: 600 mg Nalbuphine HCl (Nubain) 10 mg IVPUSH Q2H PRN PRN Reason: Pain (moderate 4-6) Sodium Chloride (Saline Flush) 10 ml FLUSH ASDIRECTED PRN PRN Reason: Keep Vein Open Witch Norma (Tucks) 1 pad TOP ASDIRECTED PRN PRN Reason: Hemorrhoid pain Discontinued Medications Influenza Virus Vaccine (Pharmacy To Dose - Influenza Vaccine) 1 each IM ONETIME ONE Stop: 07/05/17 09:51 Last Admin: 07/06/17 10:31 Dose: Not Given Influenza Virus Vaccine (Flulaval Quad [id number]) 60 mcg IM .ONCE ONE Stop: 07/05/17 18:01 Lidocaine HCl (Xylocaine 1%) 50 ml INJECT ONETIME ONE Stop: 07/05/17 16:01 Last Admin: 07/06/17 10:29 Dose: Not Given Methylergonovine Maleate (Methergine) Confirm Administered Dose 0.2 mg .ROUTE .STK-MED ONE Stop: 07/06/17 00:30 Last Admin: 07/06/17 10:30 Dose: Not Given - Interaction Disposition, : [place] in Room with Family Infant Interaction: Holding Infant Feeding: Attempted ; Nursed Fair/Poor Support Person: - Recovery Exam Fundal Tone: Firm Fundal Level: 1 Fingerbreadths Below Umbilicus Fundal Placement: Midline Lochia Amount: Scant, Small Lochia Color: Brownish Perineum Description: Edematous Episiotomy/Laceration: Approximated Bladder Status: Voiding Urinary Elimination: Voided - Exam General: Alert, Oriented Extremities: No Pedal Edema Skin: Warm, Dry
[2017-07-07] MEDS: Ibuprofen 600 MG Tab PO PRN (11:06)
[2017-07-07 12:08] VITALS: BP 129/86
== END 2017-07-07 15:45 | disposition home or self-care (01) | DRG 560 ==
LOC: JD.OB 00:11 → OBSVTOIN 07-06 00:11 → JD.OB 07-06 01:24
PROVIDERS: ADMIT Family Medicine; ATTEND Family Medicine
PROC: 10E0XZZ Delivery of Products of Conception, External Approach (ICD-10-PCS; principal; 2017-07-06)
PROC: 0KQM0ZZ Repair Perineum Muscle, Open Approach (ICD-10-PCS; 2017-07-06)
PROC: 10907ZC Drainage of Amniotic Fluid, Therapeutic from Products of Conception, Via Natural or Artificial Opening (ICD-10-PCS; 2017-07-06)
PROC: 3E0P3VZ Introduction of Hormone into Female Reproductive, Percutaneous Approach (ICD-10-PCS; 2017-07-06)
PROC: 00HU33Z Insertion of Infusion Device into Spinal Canal, Percutaneous Approach (ICD-10-PCS; 2017-07-06)
PROC: 3E0R3BZ Introduction of Anesthetic Agent into Spinal Canal, Percutaneous Approach (ICD-10-PCS; 2017-07-06)
PROC: 3E0234Z Introduction of Serum, Toxoid and Vaccine into Muscle, Percutaneous Approach (ICD-10-PCS; 2017-07-07)
DX: O48.0 Post-term pregnancy (principal); Z3A.40 40 weeks gestation of pregnancy; Z37.0 Single live birth; M06.9 Rheumatoid arthritis, unspecified; Z88.8 Allergy status to other drugs, medicaments and biological substances; Z23 Encounter for immunization; O70.1 Second degree perineal laceration during delivery; O69.81X0 Labor and delivery complicated by cord around neck, without compression, not applicable or unspecified; O67.8 Other intrapartum hemorrhage
CPT/HCPCS: 36415; 59409; 85027; 85461; 86850; 86900; 86901; 90686; A9270-GY; G0008; J2210; J2590; J2790; J3010; J7120

== ENCOUNTER 2019-01-15 14:08 | Inpatient (IN) | payer BC ==
[2019-01-15] MEDS ORDERED: Sodium Chloride 0.9% 10 ML Syringe FLUSH PRN (14:38)
[2019-01-15] MEDS ORDERED: Ondansetron 4 MG/2 ML SDV IVPUSH PRN (14:38)
[2019-01-15] MEDS: Lactated Ringers 1,000 ML IV SCH ×3 (14:52→21:40)
[2019-01-15] MEDS ORDERED: NIFEdipine 10 MG Cap PO ONE (16:23)
[2019-01-15 17:11] VITALS: BP 132/81
[2019-01-15] MEDS ORDERED: Lactated Ringers 500 ML IV ONE (18:38)
[2019-01-15] MEDS: Acetaminophen 325 MG Tab PO PRN (21:39)
[2019-01-16] MEDS: Lactated Ringers 1,000 ML IV SCH ×3 (02:02→12:30)
[2019-01-16] MEDS: Acetaminophen 325 MG Tab PO PRN (06:37)
--- NOTE | 2019-01-16 06:51 | US ---
Limited abdominal ultrasound: Multiple real-time images were obtained of the upper right abdomen. Liver shows no focal abnormality. Mild amount of sludge seen within the gallbladder. Small gallstone is noted. No gallbladder wall thickening or biliary duct dilatation is seen. Right kidney shows mild hydronephrosis which likely represents hydronephrosis of . Collapsed portion of bowel seen within the right lower abdomen. This is felt to be incidental. Pancreas is incompletely seen. Visualized portions of the pancreas are within normal limits. Hepatopedal flow noted within the portal vein. Impression: 1. Mild amount of sludge as well as gallstone. No gallbladder wall thickening or biliary duct dilatation is seen. 2. Mild right sided hydronephrosis most likely due to hydronephrosis of . 3. Other incidental finding as noted above. Diagnostic code #3 I agree with preliminary report from [facility], finalized on 01/15/19, 11:13 PM Central Time
[2019-01-16] MEDS ORDERED: Morphine 2 MG/ML Syringe IVPUSH ONE (07:46)
[2019-01-16] MEDS ORDERED: Cefepime 2 GM in Premix Bag 1 BAG IV SCH (08:00)
[2019-01-16] MEDS ORDERED: metroNIDAZOLE/Normal Saline 500 MG in Premix Bag 1 BAG IV SCH (08:30)
[2019-01-16] MEDS ORDERED: Morphine 2 MG/ML Syringe IVPUSH PRN (09:25)
--- NOTE | 2019-01-16 09:29 | PCM.PN ---
- General Info Date of Service: 01/16/19 - Review of Systems General: Reports: No Symptoms Pulmonary: Reports: No Symptoms Cardiovascular: Reports: No Symptoms Gastrointestinal: Reports: Abdominal Pain, Diarrhea, Nausea Genitourinary: Reports: No Symptoms Musculoskeletal: Reports: No Symptoms Neurological: Reports: No Symptoms Systems Review Comment:: Patient still feels pain, however, seems to be somewhat managed. Hasn't thrown up since initially on admission. Does note still having multiple episodes of diarrhea overnight. No other new concerns - Patient Data Vitals - Most Recent: Last Vital Signs Temp 37.8 C 01/15/19 14:30 Pulse 116 H 01/15/19 14:30 Resp 18 01/15/19 14:30 BP 125/59 L 01/15/19 16:35 Pulse Ox 97 01/15/19 14:30 Weight - Most Recent: 71.259 kg I&O - Last 24 Hours: Intake & Output 01/15/19 01/16/19 01/16/19 22:59 06:59 14:59 Intake Total 120 Balance 120 Lab Results Last 24 Hours: Laboratory Results - last 24 hr 01/15/19 01/15/19 01/15/19 Range/Units 15:05 15:05 16:05 WBC 15.75 H (3.98-10.04) K/mm3 RBC 3.86 L (3.98-5.22) M/mm3 Hgb 11.3 (11.2-15.7) gm/L Hct 34.6 (34.1-44.9) % MCV 89.6 (79.4-94.8) fl MCH 29.3 (25.6-32.2) pg MCHC 32.7 (32.2-35.5) g/dl RDW Std Deviation 41.4 (36.4-46.3) fL Plt Count 384 H (182-369) K/mm3 MPV 9.4 (9.4-12.3) fl Neut % (Auto) 91.4 H (34.0-71.1) % Lymph % (Auto) 3.8 L (19.3-51.7) % [place] % (Auto) 4.4 L (4.7-12.5) % Eos % (Auto) 0.1 L (0.7-5.8) Baso % (Auto) 0.1 (0.1-1.2) % Neut # (Auto) 14.40 H (1.56-6.13) K/mm3 Lymph # (Auto) 0.60 L (1.18-3.74) K/mm3 [place] # (Auto) 0.69 H (0.24-0.36) K/mm3 Eos # (Auto) 0.02 L (0.04-0.36) K/mm3 Baso # (Auto) 0.01 (0.01-0.08) K/mm3 Neutrophils % (Manual) (40-60) % Band Neutrophils % (0-10) % Lymphocytes % (Manual) (20-40) % Atypical Lymphs % % Monocytes % (Manual) (2-10) % Eosinophils % (Manual) (0.7-5.8) % Basophils % (Manual) (0.1-1.2) Manual Slide Review Abnormal smear Platelet Estimate Polychromasia Hypochromasia Anisocytosis RBC Morph Comment Sodium 136 (136-145) mEq/L Potassium 3.9 (3.5-5.1) mEq/L Chloride 101 (98-107) mEq/L Carbon Dioxide 23 (21-32) mEq/L Anion Gap 15.9 H (5-15) BUN 6 L (7-18) mg/dL Creatinine 0.6 (0.55-1.02) mg/dL Est Cr Clr Drug Dosing 148.26 mL/min Estimated GFR (MDRD) > 60 (>60) mL/min BUN/Creatinine Ratio 10.0 L (14-18) Glucose 92 (74-106) mg/dL Calcium 8.9 (8.5-10.1) mg/dL Total Bilirubin 0.3 (0.2-1.0) mg/dL AST 11 L (15-37) U/L ALT 13 L (14-59) U/L Alkaline Phosphatase 119 H (46-116) U/L Total Protein 7.0 (6.4-8.2) g/dl Albumin 2.2 L (3.4-5.0) g/dl Globulin 4.8 gm/dL Albumin/Globulin Ratio 0.5 L (1-2) Urine Color Yellow (Yellow) Urine Appearance Clear (Clear) Urine pH 6.5 (5.0-8.0) Ur Specific [place] 1.020 (1.005-1.030) Urine Protein 1+ H (Negative) Urine Glucose (UA) Negative (Negative) Urine Ketones 4+ H (Negative) Urine Occult Blood Trace-intact H (Negative) Urine Nitrite Negative (Negative) Urine Bilirubin Negative (Negative) Urine Urobilinogen 0.2 (0.2-1.0) Ur Leukocyte Esterase Negative (Negative) Urine RBC 0-5 (0-5) /hpf Urine WBC Not seen (0-5) /hpf Ur Squamous Epith Cells 0-5 (0-5) /hpf Urine Bacteria Not seen (FEW) /hpf Urine Mucus Moderate H (FEW) /hpf 01/16/19 Range/Units 06:10 WBC 18.73 H (3.98-10.04) K/mm3 RBC 3.33 L (3.98-5.22) M/mm3 Hgb 9.7 L D (11.2-15.7) gm/L Hct 30.0 L (34.1-44.9) % MCV 90.1 (79.4-94.8) fl MCH 29.1 (25.6-32.2) pg MCHC 32.3 (32.2-35.5) g/dl RDW Std Deviation 41.6 (36.4-46.3) fL Plt Count 345 (182-369) K/mm3 MPV 9.8 (9.4-12.3) fl Neut % (Auto) (34.0-71.1) % Lymph % (Auto) (19.3-51.7) % [place] % (Auto) (4.7-12.5) % Eos % (Auto) (0.7-5.8) Baso % (Auto) (0.1-1.2) % Neut # (Auto) (1.56-6.13) K/mm3 Lymph # (Auto) (1.18-3.74) K/mm3 [place] # (Auto) (0.24-0.36) K/mm3 Eos # (Auto) (0.04-0.36) K/mm3 Baso # (Auto) (0.01-0.08) K/mm3 Neutrophils % (Manual) 93 H (40-60) % Band Neutrophils % 0 (0-10) % Lymphocytes % (Manual) 5 L (20-40) % Atypical Lymphs % 0 % Monocytes % (Manual) 2 (2-10) % Eosinophils % (Manual) 0 L (0.7-5.8) % Basophils % (Manual) 0 L (0.1-1.2) Manual Slide Review Platelet Estimate Adequate Polychromasia 1+ slight Hypochromasia 2+ moderate Anisocytosis 2+ moderate RBC Morph Comment Abnormal Sodium (136-145) mEq/L Potassium (3.5-5.1) mEq/L Chloride (98-107) mEq/L Carbon Dioxide (21-32) mEq/L Anion Gap (5-15) BUN (7-18) mg/dL Creatinine (0.55-1.02) mg/dL Est Cr Clr Drug Dosing mL/min Estimated GFR (MDRD) (>60) mL/min BUN/Creatinine Ratio (14-18) Glucose (74-106) mg/dL Calcium (8.5-10.1) mg/dL Total Bilirubin (0.2-1.0) mg/dL AST (15-37) U/L ALT (14-59) U/L Alkaline Phosphatase (46-116) U/L Total Protein (6.4-8.2) g/dl Albumin (3.4-5.0) g/dl Globulin gm/dL Albumin/Globulin Ratio (1-2) Urine Color (Yellow) Urine Appearance (Clear) Urine pH (5.0-8.0) Ur Specific [place] (1.005-1.030) Urine Protein (Negative) Urine Glucose (UA) (Negative) Urine Ketones (Negative) Urine Occult Blood (Negative) Urine Nitrite (Negative) Urine Bilirubin (Negative) Urine Urobilinogen (0.2-1.0) Ur Leukocyte Esterase (Negative) Urine RBC (0-5) /hpf Urine WBC (0-5) /hpf Ur Squamous Epith Cells (0-5) /hpf Urine Bacteria (FEW) /hpf Urine Mucus (FEW) /hpf Med Orders - Current: Current Medications Acetaminophen (Tylenol) 650 mg PO Q6H PRN PRN Reason: Pain Last Admin: 01/16/19 06:37 Dose: 650 mg Lactated Ringer's (Ringers, Lactated) 1,000 mls @ 250 mls/hr IV ASDIRECTED GINA Last Infusion: 01/16/19 07:52 Dose: 125 mls/hr Cefepime HCl 2 gm/ Premix 50 mls @ 100 mls/hr IV Q8H [facility] Last Admin: 01/16/19 08:10 Dose: 100 mls/hr Metronidazole 500 mg/ Premix 100 mls @ 100 mls/hr IV Q8H [facility] Last Admin: 01/16/19 09:13 Dose: 100 mls/hr Ondansetron HCl (Zofran) 4 mg IVPUSH Q4H PRN PRN Reason: Nausea/Vomiting Sodium Chloride (Saline Flush) 10 ml FLUSH ASDIRECTED PRN PRN Reason: Keep Vein Open Discontinued Medications Lactated Ringer's (Ringers, Lactated) 1,000 mls @ 500 mls/hr IV .BOLUS [facility] Last Admin: 01/15/19 18:44 Dose: 500 mls/hr Morphine Sulfate (Morphine) 2 mg IVPUSH ONETIME ONE Stop: 01/16/19 07:47 Nifedipine (Procardia) 10 mg PO ONETIME ONE Stop: 01/15/19 16:24 Last Admin: 01/15/19 16:35 Dose: 10 mg - Exam General: Alert, Oriented, Cooperative Lungs: Clear to Auscultation, Normal Respiratory Effort Cardiovascular: Regular Rhythm, Tachycardia GI/Abdominal Exam: Soft, Tender (RUQ along rib line). No: Guarding, Rigid, Rebound Extremities: Normal Inspection, Non-Tender - Problem List & Annotations (1) 26 weeks gestation of SNOMED Code(s): 07270361 Code(s): Z3A.26 - 26 WEEKS GESTATION OF Status: Acute Current Visit: Yes (2) Abdominal pain SNOMED Code(s): 81469061 Code(s): R10.9 - UNSPECIFIED ABDOMINAL PAIN Status: Acute Current Visit: Yes - Problem List Review Problem List Initiated/Reviewed/Updated: Yes - My Orders Last 24 Hours: My Active Orders 01/16/19 07:47 C DIFFICILE BY PCR W/NAP1 [MOLEC] Routine Isolation [COMM] Stat 01/16/19 07:53 Communication Order [RC] ASDIRECTED 01/16/19 08:00 Cefepime [Maxipime in D5W 2 GM/50 ML] 2 gm Premix Bag 1 bag IV Q8H 01/16/19 08:30 metroNIDAZOLE/Normal Saline [Flagyl 500 MG in NS 100 ML] 500 mg Premix Bag 1 bag IV Q8H 01/16/19 08:49 Patient Status [ADT] Routine 01/16/19 Breakfast Clear Liquid Diet [DIET] - Assessment Assessment:: 28 y/o at 26 1/7 wks. patient admitted for abdominal pain yesterday afternoon. - Plan Plan:: Was febrile to 101.8 at 1845 yesterday and 100.7 at 2100. 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 Pain is intermittently present. Will order IV morphine as needed for pain. Patient has received mostly Tylenol overnight. White count yesterday was 15 and this morning elevated to 18. She does still have pain in the right upper quadrant Will consult general surgery this morning. We'll make her nothing by mouth briefly until general surgery has the chance to assess. Further management once evaluated by that team Did contact general surgery who recommended starting antibiotics for cholecystitis. We'll plan for cefepime and Flagyl. Patient does note an allergy when she was a child to cefaclor and thinks this may have been hives. Was about 4 or so at that time. We'll start cefepime and monitor closely for any signs of allergic reaction
--- NOTE | 2019-01-16 11:43 | PCM.SN ---
- Free Text/Narrative Note: 1145 Patient had received IV morphine this AM for pain, but got little relief. Dr. Hernandez did reassess patient just now and recommends transfer to [place] in case surgery is needed and for potential impacts on . Will begin transfer process. Family agrees. Fatimah Currie MD
--- NOTE | 2019-01-16 13:20 | PCM.PN ---
- General Info Date of Service: 01/15/19 - Patient Data Vitals - Most Recent: Last Vital Signs Temp 37.8 C 01/15/19 14:30 Pulse 116 H 01/15/19 14:30 Resp 18 01/15/19 14:30 BP 125/59 L 01/15/19 16:35 Pulse Ox 97 01/15/19 14:30 Weight - Most Recent: 71.259 kg I&O - Last 24 Hours: Intake & Output 01/15/19 01/16/19 01/16/19 22:59 06:59 14:59 Intake Total 120 Balance 120 Lab Results Last 24 Hours: Laboratory Results - last 24 hr 01/15/19 01/15/19 01/15/19 Range/Units 15:05 15:05 16:05 WBC 15.75 H (3.98-10.04) K/mm3 RBC 3.86 L (3.98-5.22) M/mm3 Hgb 11.3 (11.2-15.7) gm/L Hct 34.6 (34.1-44.9) % MCV 89.6 (79.4-94.8) fl MCH 29.3 (25.6-32.2) pg MCHC 32.7 (32.2-35.5) g/dl RDW Std Deviation 41.4 (36.4-46.3) fL Plt Count 384 H (182-369) K/mm3 MPV 9.4 (9.4-12.3) fl Neut % (Auto) 91.4 H (34.0-71.1) % Lymph % (Auto) 3.8 L (19.3-51.7) % [place] % (Auto) 4.4 L (4.7-12.5) % Eos % (Auto) 0.1 L (0.7-5.8) Baso % (Auto) 0.1 (0.1-1.2) % Neut # (Auto) 14.40 H (1.56-6.13) K/mm3 Lymph # (Auto) 0.60 L (1.18-3.74) K/mm3 [place] # (Auto) 0.69 H (0.24-0.36) K/mm3 Eos # (Auto) 0.02 L (0.04-0.36) K/mm3 Baso # (Auto) 0.01 (0.01-0.08) K/mm3 Neutrophils % (Manual) (40-60) % Band Neutrophils % (0-10) % Lymphocytes % (Manual) (20-40) % Atypical Lymphs % % Monocytes % (Manual) (2-10) % Eosinophils % (Manual) (0.7-5.8) % Basophils % (Manual) (0.1-1.2) Manual Slide Review Abnormal smear Platelet Estimate Polychromasia Hypochromasia Anisocytosis RBC Morph Comment Sodium 136 (136-145) mEq/L Potassium 3.9 (3.5-5.1) mEq/L Chloride 101 (98-107) mEq/L Carbon Dioxide 23 (21-32) mEq/L Anion Gap 15.9 H (5-15) BUN 6 L (7-18) mg/dL Creatinine 0.6 (0.55-1.02) mg/dL Est Cr Clr Drug Dosing 148.26 mL/min Estimated GFR (MDRD) > 60 (>60) mL/min BUN/Creatinine Ratio 10.0 L (14-18) Glucose 92 (74-106) mg/dL Calcium 8.9 (8.5-10.1) mg/dL Total Bilirubin 0.3 (0.2-1.0) mg/dL AST 11 L (15-37) U/L ALT 13 L (14-59) U/L Alkaline Phosphatase 119 H (46-116) U/L Total Protein 7.0 (6.4-8.2) g/dl Albumin 2.2 L (3.4-5.0) g/dl Globulin 4.8 gm/dL Albumin/Globulin Ratio 0.5 L (1-2) Urine Color Yellow (Yellow) Urine Appearance Clear (Clear) Urine pH 6.5 (5.0-8.0) Ur Specific [place] 1.020 (1.005-1.030) Urine Protein 1+ H (Negative) Urine Glucose (UA) Negative (Negative) Urine Ketones 4+ H (Negative) Urine Occult Blood Trace-intact H (Negative) Urine Nitrite Negative (Negative) Urine Bilirubin Negative (Negative) Urine Urobilinogen 0.2 (0.2-1.0) Ur Leukocyte Esterase Negative (Negative) Urine RBC 0-5 (0-5) /hpf Urine WBC Not seen (0-5) /hpf Ur Squamous Epith Cells 0-5 (0-5) /hpf Urine Bacteria Not seen (FEW) /hpf Urine Mucus Moderate H (FEW) /hpf 01/16/19 Range/Units 06:10 WBC 18.73 H (3.98-10.04) K/mm3 RBC 3.33 L (3.98-5.22) M/mm3 Hgb 9.7 L D (11.2-15.7) gm/L Hct 30.0 L (34.1-44.9) % MCV 90.1 (79.4-94.8) fl MCH 29.1 (25.6-32.2) pg MCHC 32.3 (32.2-35.5) g/dl RDW Std Deviation 41.6 (36.4-46.3) fL Plt Count 345 (182-369) K/mm3 MPV 9.8 (9.4-12.3) fl Neut % (Auto) (34.0-71.1) % Lymph % (Auto) (19.3-51.7) % [place] % (Auto) (4.7-12.5) % Eos % (Auto) (0.7-5.8) Baso % (Auto) (0.1-1.2) % Neut # (Auto) (1.56-6.13) K/mm3 Lymph # (Auto) (1.18-3.74) K/mm3 [place] # (Auto) (0.24-0.36) K/mm3 Eos # (Auto) (0.04-0.36) K/mm3 Baso # (Auto) (0.01-0.08) K/mm3 Neutrophils % (Manual) 93 H (40-60) % Band Neutrophils % 0 (0-10) % Lymphocytes % (Manual) 5 L (20-40) % Atypical Lymphs % 0 % Monocytes % (Manual) 2 (2-10) % Eosinophils % (Manual) 0 L (0.7-5.8) % Basophils % (Manual) 0 L (0.1-1.2) Manual Slide Review Platelet Estimate Adequate Polychromasia 1+ slight Hypochromasia 2+ moderate Anisocytosis 2+ moderate RBC Morph Comment Abnormal Sodium (136-145) mEq/L Potassium (3.5-5.1) mEq/L Chloride (98-107) mEq/L Carbon Dioxide (21-32) mEq/L Anion Gap (5-15) BUN (7-18) mg/dL Creatinine (0.55-1.02) mg/dL Est Cr Clr Drug Dosing mL/min Estimated GFR (MDRD) (>60) mL/min BUN/Creatinine Ratio (14-18) Glucose (74-106) mg/dL Calcium (8.5-10.1) mg/dL Total Bilirubin (0.2-1.0) mg/dL AST (15-37) U/L ALT (14-59) U/L Alkaline Phosphatase (46-116) U/L Total Protein (6.4-8.2) g/dl Albumin (3.4-5.0) g/dl Globulin gm/dL Albumin/Globulin Ratio (1-2) Urine Color (Yellow) Urine Appearance (Clear) Urine pH (5.0-8.0) Ur Specific [place] (1.005-1.030) Urine Protein (Negative) Urine Glucose (UA) (Negative) Urine Ketones (Negative) Urine Occult Blood (Negative) Urine Nitrite (Negative) Urine Bilirubin (Negative) Urine Urobilinogen (0.2-1.0) Ur Leukocyte Esterase (Negative) Urine RBC (0-5) /hpf Urine WBC (0-5) /hpf Ur Squamous Epith Cells (0-5) /hpf Urine Bacteria (FEW) /hpf Urine Mucus (FEW) /hpf Med Orders - Current: Current Medications Acetaminophen (Tylenol) 650 mg PO Q6H PRN PRN Reason: Pain Last Admin: 01/16/19 06:37 Dose: 650 mg Lactated Ringer's (Ringers, Lactated) 1,000 mls @ 250 mls/hr IV ASDIRECTED [facility] Last Infusion: 01/16/19 07:52 Dose: 125 mls/hr Cefepime HCl 2 gm/ Premix 50 mls @ 100 mls/hr IV Q8H [facility] Last Admin: 01/16/19 08:10 Dose: 100 mls/hr Metronidazole 500 mg/ Premix 100 mls @ 100 mls/hr IV Q8H [facility] Last Admin: 01/16/19 09:13 Dose: 100 mls/hr Morphine Sulfate (Morphine) 2 mg IVPUSH Q4H PRN PRN Reason: Pain Last Admin: 01/16/19 09:41 Dose: 2 mg Ondansetron HCl (Zofran) 4 mg IVPUSH Q4H PRN PRN Reason: Nausea/Vomiting Sodium Chloride (Saline Flush) 10 ml FLUSH ASDIRECTED PRN PRN Reason: Keep Vein Open Discontinued Medications Lactated Ringer's (Ringers, Lactated) 1,000 mls @ 500 mls/hr IV .BOLUS GINA Last Admin: 01/15/19 18:44 Dose: 500 mls/hr Morphine Sulfate (Morphine) 2 mg IVPUSH ONETIME ONE Stop: 01/16/19 07:47 Nifedipine (Procardia) 10 mg PO ONETIME ONE Stop: 01/15/19 16:24 Last Admin: 01/15/19 16:35 Dose: 10 mg - My Orders Last 24 Hours: My Active Orders 01/15/19 14:38 Non Stress Test [RC] PER UNIT ROUTINE Vital Signs [RC] PER UNIT ROUTINE Ondansetron [Zofran] 4 mg IVPUSH Q4H PRN Sodium Chloride 0.9% [Saline Flush] 10 ml FLUSH ASDIRECTED PRN Peripheral IV Insertion Adult [OM.PC] Urgent Resuscitation Status Routine 01/15/19 14:39 Peripheral IV Care [RC] . DIRECTED 01/15/19 16:25 UA W/MICROSCOPIC [URIN] Stat 01/15/19 21:14 Acetaminophen [Tylenol] 650 mg PO Q6H PRN 01/15/19 21:15 Lactated Ringers [Ringers, Lactated] 1,000 ml IV ASDIRECTED - Assessment Assessment:: 28 y/o at 26 1/7 wks. patient admitted for abdominal pain yesterday afternoon. - Plan Plan:: Was febrile to 101.8 at 1845 yesterday and 100.7 at 2100. Has been afebrile in the early childhood services coordinator hours. Pain is intermittently present. Will order IV morphine as needed for pain. Patient has received mostly Tylenol overnight. White count yesterday was 15 and this morning elevated to 18. She does still have pain in the right upper quadrant Will consult general surgery this morning. We'll make her nothing by mouth briefly until general surgery has the chance to assess. Further management once evaluated by that team Did contact general surgery who recommended starting antibiotics for cholecystitis. We'll plan for cefepime and Flagyl. Patient does note an allergy when she was a child to cefaclor and thinks this may have been hives. Was about 4 or so at that time. We'll start cefepime and monitor closely for any signs of allergic reaction
--- NOTE | 2019-01-16 15:08 | PCM.DCSUM1 ---
Discharge Summary - Discharge Data Discharge Date: 01/16/19 Discharge Disposition: DC/Tfer to Acute Hospital 02 Condition: Good - Discharge Diagnosis/Problem(s) (1) 26 weeks gestation of SNOMED Code(s): 19703492 ICD Code: Z3A.26 - 26 WEEKS GESTATION OF Status: Acute (2) Abdominal pain SNOMED Code(s): 02895016 ICD Code: R10.9 - UNSPECIFIED ABDOMINAL PAIN Status: Acute - Patient Summary/Data Complications: None Consults: None Hospital Course: Patient is a 28 y/o at 26 0/7 wks who presented with acute RUQ pain. She was also noted to be febrile and with slight elevated WBC. Did have nausea and diarrhea and so concerns was for viral illness vs gallbladder disease. RUQ US done and with findings of sludge and stone, but no definite findings of wall thickening or infection. She was monitored and hydrated overnight, but next AM had worsening of pain and elevation in WBC. General surgery consulted and recommended starting antibiotic therapy. Cefepime and FLagyl started. Even with this patient with worsening abdominal pain. General surgery at this time recommended transfer to hospital with NICU facilities to ensure if surgery needed to be preformed and if there was complication baby would have appropriate care team. Clinton Velez consulted and accepted patient in transfer - Patient Instructions Diet: Regular Diet as Tolerated Activity: As Tolerated - Discharge Plan *PRESCRIPTION DRUG MONITORING PROGRAM REVIEWED*: Not Applicable *COPY OF PRESCRIPTION DRUG MONITORING REPORT IN PATIENT NICKIE: Not Applicable Home Medications: Home Meds Pnv No.122/Iron/Folic Acid [ Multi Tablet] 1 each PO DAILY 01/15/19 [ History] - Discharge Summary/Plan Comment DC Time >30 min.: No - Patient Data Vitals - Most Recent: Last Vital Signs Temp 37.8 C 01/15/19 14:30 Pulse 116 H 01/15/19 14:30 Resp 18 01/15/19 14:30 BP 125/59 L 01/15/19 16:35 Pulse Ox 97 01/15/19 14:30 Weight - Most Recent: 71.214 kg I&O - Last 24 hours: Intake & Output 01/16/19 01/16/19 01/16/19 06:59 14:59 22:59 Intake Total 200 Balance 200 Lab Results - Last 24 hrs: Laboratory Results - last 24 hr 0401/15/19 01/15/19 Range/Units 15:05 15:05 16:05 WBC 15.75 H (3.98-10.04) K/mm3 RBC 3.86 L (3.98-5.22) M/mm3 Hgb 11.3 (11.2-15.7) gm/L Hct 34.6 (34.1-44.9) % MCV 89.6 (79.4-94.8) fl MCH 29.3 (25.6-32.2) pg MCHC 32.7 (32.2-35.5) g/dl RDW Std Deviation 41.4 (36.4-46.3) fL Plt Count 384 H (182-369) K/mm3 MPV 9.4 (9.4-12.3) fl Neut % (Auto) 91.4 H (34.0-71.1) % Lymph % (Auto) 3.8 L (19.3-51.7) % [place] % (Auto) 4.4 L (4.7-12.5) % Eos % (Auto) 0.1 L (0.7-5.8) Baso % (Auto) 0.1 (0.1-1.2) % Neut # (Auto) 14.40 H (1.56-6.13) K/mm3 Lymph # (Auto) 0.60 L (1.18-3.74) K/mm3 [place] # (Auto) 0.69 H (0.24-0.36) K/mm3 Eos # (Auto) 0.02 L (0.04-0.36) K/mm3 Baso # (Auto) 0.01 (0.01-0.08) K/mm3 Neutrophils % (Manual) (40-60) % Band Neutrophils % (0-10) % Lymphocytes % (Manual) (20-40) % Atypical Lymphs % % Monocytes % (Manual) (2-10) % Eosinophils % (Manual) (0.7-5.8) % Basophils % (Manual) (0.1-1.2) Manual Slide Review Abnormal smear Platelet Estimate Polychromasia Hypochromasia Anisocytosis RBC Morph Comment Sodium 136 (136-145) mEq/L Potassium 3.9 (3.5-5.1) mEq/L Chloride 101 (98-107) mEq/L Carbon Dioxide 23 (21-32) mEq/L Anion Gap 15.9 H (5-15) BUN 6 L (7-18) mg/dL Creatinine 0.6 (0.55-1.02) mg/dL Est Cr Clr Drug Dosing 148.26 mL/min Estimated GFR (MDRD) > 60 (>60) mL/min BUN/Creatinine Ratio 10.0 L (14-18) Glucose 92 (74-106) mg/dL Calcium 8.9 (8.5-10.1) mg/dL Total Bilirubin 0.3 (0.2-1.0) mg/dL AST 11 L (15-37) U/L ALT 13 L (14-59) U/L Alkaline Phosphatase 119 H (46-116) U/L Total Protein 7.0 (6.4-8.2) g/dl Albumin 2.2 L (3.4-5.0) g/dl Globulin 4.8 gm/dL Albumin/Globulin Ratio 0.5 L (1-2) Urine Color Yellow (Yellow) Urine Appearance Clear (Clear) Urine pH 6.5 (5.0-8.0) Ur Specific [place] 1.020 (1.005-1.030) Urine Protein 1+ H (Negative) Urine Glucose (UA) Negative (Negative) Urine Ketones 4+ H (Negative) Urine Occult Blood Trace-intact H (Negative) Urine Nitrite Negative (Negative) Urine Bilirubin Negative (Negative) Urine Urobilinogen 0.2 (0.2-1.0) Ur Leukocyte Esterase Negative (Negative) Urine RBC 0-5 (0-5) /hpf Urine WBC Not seen (0-5) /hpf Ur Squamous Epith Cells 0-5 (0-5) /hpf Urine Bacteria Not seen (FEW) /hpf Urine Mucus Moderate H (FEW) /hpf 01/16/19 Range/Units 06:10 WBC 18.73 H (3.98-10.04) K/mm3 RBC 3.33 L (3.98-5.22) M/mm3 Hgb 9.7 L D (11.2-15.7) gm/L Hct 30.0 L (34.1-44.9) % MCV 90.1 (79.4-94.8) fl MCH 29.1 (25.6-32.2) pg MCHC 32.3 (32.2-35.5) g/dl RDW Std Deviation 41.6 (36.4-46.3) fL Plt Count 345 (182-369) K/mm3 MPV 9.8 (9.4-12.3) fl Neut % (Auto) (34.0-71.1) % Lymph % (Auto) (19.3-51.7) % [place] % (Auto) (4.7-12.5) % Eos % (Auto) (0.7-5.8) Baso % (Auto) (0.1-1.2) % Neut # (Auto) (1.56-6.13) K/mm3 Lymph # (Auto) (1.18-3.74) K/mm3 [place] # (Auto) (0.24-0.36) K/mm3 Eos # (Auto) (0.04-0.36) K/mm3 Baso # (Auto) (0.01-0.08) K/mm3 Neutrophils % (Manual) 93 H (40-60) % Band Neutrophils % 0 (0-10) % Lymphocytes % (Manual) 5 L (20-40) % Atypical Lymphs % 0 % Monocytes % (Manual) 2 (2-10) % Eosinophils % (Manual) 0 L (0.7-5.8) % Basophils % (Manual) 0 L (0.1-1.2) Manual Slide Review Platelet Estimate Adequate Polychromasia 1+ slight Hypochromasia 2+ moderate Anisocytosis 2+ moderate RBC Morph Comment Abnormal Sodium (136-145) mEq/L Potassium (3.5-5.1) mEq/L Chloride (98-107) mEq/L Carbon Dioxide (21-32) mEq/L Anion Gap (5-15) BUN (7-18) mg/dL Creatinine (0.55-1.02) mg/dL Est Cr Clr Drug Dosing mL/min Estimated GFR (MDRD) (>60) mL/min BUN/Creatinine Ratio (14-18) Glucose (74-106) mg/dL Calcium (8.5-10.1) mg/dL Total Bilirubin (0.2-1.0) mg/dL AST (15-37) U/L ALT (14-59) U/L Alkaline Phosphatase (46-116) U/L Total Protein (6.4-8.2) g/dl Albumin (3.4-5.0) g/dl Globulin gm/dL Albumin/Globulin Ratio (1-2) Urine Color (Yellow) Urine Appearance (Clear) Urine pH (5.0-8.0) Ur Specific [place] (1.005-1.030) Urine Protein (Negative) Urine Glucose (UA) (Negative) Urine Ketones (Negative) Urine Occult Blood (Negative) Urine Nitrite (Negative) Urine Bilirubin (Negative) Urine Urobilinogen (0.2-1.0) Ur Leukocyte Esterase (Negative) Urine RBC (0-5) /hpf Urine WBC (0-5) /hpf Ur Squamous Epith Cells (0-5) /hpf Urine Bacteria (FEW) /hpf Urine Mucus (FEW) /hpf Med Orders - Current: Current Medications Acetaminophen (Tylenol) 650 mg PO Q6H PRN PRN Reason: Pain Last Admin: 01/16/19 06:37 Dose: 650 mg Lactated Ringer's (Ringers, Lactated) 1,000 mls @ 250 mls/hr IV ASDIRECTED [facility] Last Infusion: 01/16/19 07:52 Dose: 125 mls/hr Cefepime HCl 2 gm/ Premix 50 mls @ 100 mls/hr IV Q8H [facility] Last Admin: 01/16/19 08:10 Dose: 100 mls/hr Metronidazole 500 mg/ Premix 100 mls @ 100 mls/hr IV Q8H [facility] Last Admin: 01/16/19 09:13 Dose: 100 mls/hr Morphine Sulfate (Morphine) 2 mg IVPUSH Q4H PRN PRN Reason: Pain Last Admin: 01/16/19 09:41 Dose: 2 mg Ondansetron HCl (Zofran) 4 mg IVPUSH Q4H PRN PRN Reason: Nausea/Vomiting Sodium Chloride (Saline Flush) 10 ml FLUSH ASDIRECTED PRN PRN Reason: Keep Vein Open Discontinued Medications Lactated Ringer's (Ringers, Lactated) 1,000 mls @ 500 mls/hr IV .BOLUS [facility] Last Admin: 01/15/19 18:44 Dose: 500 mls/hr Morphine Sulfate (Morphine) 2 mg IVPUSH ONETIME ONE Stop: 01/16/19 07:47 Nifedipine (Procardia) 10 mg PO ONETIME ONE Stop: 01/15/19 16:24 Last Admin: 01/15/19 16:35 Dose: 10 mg
--- NOTE | 2019-01-17 07:06 | CONS ---
CONSULTING PHYSICIAN: Isabelle Hernandze MD DATE OF CONSULTATION: 01/16/2019 CHIEF COMPLAINT: Right upper quadrant pain and fever. HISTORY OF PRESENT ILLNESS: Abby Thibodeaux is a most pleasant 28-year-old female, who is 28 weeks . Over the course of the last day, she has just been feeling uncomfortable and had epigastric and right upper quadrant pain. This would come and go. She states it was very severe last night. Currently, she states she feels a little bit better, but she is just waiting for the next "attack." Of note, the patient had no prior biliary colic and her other was normal without any complication. When she arrived here last evening, she did have a fever and went up little over 100. At that point, she clinically was dehydrated and fluids were given. Over the course of the last 12 hours, her fever is now down to 99 and her heart rate is decreased to 90. She states she does feel a bit better. She has no nausea or vomiting at this point as like what she had yesterday. She also had a little bit of diarrhea. ALLERGIES: Ceclor. HOME MEDICATIONS: Just the . PAST SURGERY HISTORY: She has had 1 , which was normal vaginal delivery. She has 3 siblings who are alive and well. REVIEW OF SYSTEMS: No history of seizures or strokes. No thyroid, diabetes, or hepatitis. She says she was a little short of breath that it was hard for her to take a deep breath because of the pain in the right upper quadrant, this is improved. She has no history of chest pain. ABDOMEN: See HPI. No hematuria or dysuria. She states she has had some diarrhea, but only like 1 time a day. She has no history of DVT or bruising or ankle swelling or edema. PHYSICAL EXAMINATION: VITAL SIGNS: GCS is 15. NECK: Without mass. LUNGS: Clear, but diminished sounds in the bases. HEART: Rhythm is regular without murmur. ABDOMEN: There are active bowel sounds. Uterus is well above the umbilicus. She has mildly tender in right upper quadrant and when I had her take a deep breath, she said that it hurt a little bit more. EXTREMITIES: Ankles are free of edema. LABORATORY DATA: Laboratory work that has been done, her WBC initially was low, but now is 18.7, H and H is 9 and 30 respectively. Chemistries: Electrolytes were normal except for a BUN of 6. Interesting enough, her total bilirubin is normal at 0.3, and her alkaline phosphatase is mildly elevated by only 3 points to 119. Ultrasound has been reviewed. IMPRESSION AND PLAN: I do believe this patient has had an episode of biliary colic, i.e. acute cholecystitis. She is clinically defervesced in view of the fact that she has had no morphine when I evaluated her, and her temperature and her heart rate have improved with IV hydration. I clearly discussed with the and the what is going on with the gallbladder and I in fact cecilia a picture. I explained to them that it is ideally that this would be written out. We would not have to operate during the at all as there is data that does demonstrate there could be complications with the baby. In view of the fact that it was to the point that she was not improving. I would recommend that she would go to a higher level of care where in case that if the baby is compromised, that we would have a neonatology unit at hand and certainly [employer] DAT[employer] ADMINISTRATOR and does agree. Clinically, right now she has improved and I think we will just see how she does over the course of the next several hours. If that she does make it through this episode, I explained to the family that these could occur again, but hopefully we will be able to continue to do it in a nonsurgical manner until the is complete. The other option if it was really markedly inflamed and distended, we could do a percutaneous drainage. I briefly discussed that with the family too but at this point, I think she has responded appropriately to the fluids and pain management. In reviewing the chart, dictating etc. I was with the patient and this was over 30 minutes total for the consultation and the dictation evaluation of the patient etc. MMODAL /[id number]
--- NOTE | 2019-01-17 14:52 | CONS ---
CONSULTING PHYSICIAN: Isabelle Hernandez MD DATE OF CONSULTATION: 01/16/2019 HISTORY OF PRESENT ILLNESS: Ms. Abby Thibodeaux is a 28-year-old female who I saw about 4 hours ago with biliary colic. Of note, she is also 28 weeks' . Unfortunately, over the last several hours, the pain has returned and such that, she actually has significantly more tenderness in the right upper quadrant. She has not spiked any additional fever. PHYSICAL EXAMINATION: Indeed, she is more sore in the right upper quadrant and she looks grossly uncomfortable. IMPRESSION AND PLAN: I have discussed with the team and I really think that because she is not progressing in a positive way that I think she should be transferred to a higher level of care just in case that there is need for surgery and/or if there are any changes in the status of her . Dr. Currie is at the bedside and she concurs. I clearly discussed with both the patient, her , and her mother. We are err on the side of caution because we certainly want her to improve without surgical intervention, but if that does not work, we need the additional team support of the Neonatology. WILMAR /[id number]
== END 2019-01-16 12:30 | DRG 566 ==
LOC: JD.OB 14:08 → JD.OBCHECK 14:08 → JD.OB 01-16 07:30
PROVIDERS: ADMIT Obstetrics & Gynecology; ATTEND Obstetrics & Gynecology
DX: O99.612 Diseases of the digestive system complicating pregnancy, second trimester (principal); K81.0 Acute cholecystitis; Z3A.26 26 weeks gestation of pregnancy; Z88.1 Allergy status to other antibiotic agents
CPT/HCPCS: 36415; 59025; 76705; 76705-26; 80053; 81001; 85007; 85025; 85027; 96360; 96361; A9270-GY; J0692; J2270; J3490; J7120